=== PATIENT | female | born 1950 | race American Indian/Alaskan Native ===

== ENCOUNTER 2018-12-25 07:56 | Outpatient (CLI) | payer MEDICARE ==
[2018-12-25 08:39] LABS: Blood Urea Nitrogen 24 mg/dL (7-17)
--- NOTE | 2018-12-25 19:24 | Cat Scan Report ---
PROCEDURE: CT ABDOMEN PELVIS WO/W CON HISTORY: R31.0 HEMATURIA FINDINGS: Unenhanced CT of the abdomen and pelvis was performed followed by contrast-enhanced CT of t he abdomen and pelvis obtained following the intravenous administration of iodinated contrast. There is cardiomegaly. There is lingular and bilateral lower lobe linear atelectasis. There are small left lower pole nonobstructing renal calculi. There are small bilateral renal cysts. There is a left upper pole dense renal lesion. thin section pr econtrast image 107, 0.8 cm which does not appear to enhance on postcontrast images hemorrhagic cyst. The right kidney is small measuring 8.5 cm in length and the left kidney is normal in size measuring 11.0 cm. There is some stranding around the right kidney. Right renal enhancement is heterogeneous bu t pyelonephritis is not excluded and clinical correlation is advised. There is fatty infiltration of the liver without suspect focal hepatic lesion. There is a splenule. There is a left adrenal nodule, 3.2 x 3.1 cm, likely adenoma. The right adrenal is unremarkable. No focal pancreatic lesion is seen. The gallbladder is unremarkable. There is aortic atherosclerotic change without aneurysmal dilation o f the aorta. There is a fat-containing umbilical hernia. There is a normal appendix. There is no evidence of diverticulitis. There has been a hysterectomy. The urinary bladder is within normal limits. IMPRESSION: ABDOMEN: Small left lower pole nonobstructing renal calculi Subcentimeter left upper pole suspected hemorrhagic cyst The right kidney is small. There are some stranding around the right kidney. Pyelonephritis is not ex cluded Pelvis: No evidence of diverticulitis Hysterectomy This document is electronically signed by Martínez Ruff MD., December 25 2018 07:22:21 PM ET
== END 2018-12-25 07:57 | disposition home or self-care (01) ==
LOC: CT 07:56
PROVIDERS: ATTEND Urology
DX: K42.9 Umbilical hernia without obstruction or gangrene (principal); N20.0 Calculus of kidney; E78.5 Hyperlipidemia, unspecified; J44.9 Chronic obstructive pulmonary disease, unspecified; E11.9 Type 2 diabetes mellitus without complications; I10 Essential (primary) hypertension; M19.90 Unspecified osteoarthritis, unspecified site; Z90.710 Acquired absence of both cervix and uterus; Z87.891 Personal history of nicotine dependence
CPT/HCPCS: 36415; 74178; 82565; 84520; Q9967